=== PATIENT | female | born 1995 | race Caucasian/White ===

== ENCOUNTER 2020-02-07 11:55 | Emergency (ER) | payer SELFPAY ==
[~2020-02-07] VITALS: Ht 162.6 cm; Wt 94.8 kg
[2020-02-07 11:59] VITALS: BP 127/70; Ht 162.6 cm; Wt 94.8 kg
== END 2020-02-07 13:53 | disposition home or self-care (01) ==
LOC: ED 11:55
DX: M54.5 Low back pain (principal)
CPT/HCPCS: J1885